=== PATIENT | female | born 1985 | race Caucasian/White ===

== ENCOUNTER 2017-06-30 21:44 | Emergency (ER) | payer OTHER | END 2017-06-30 23:20 | disposition home or self-care (01) | LOC: D.ER 21:44 | DX: J02.0 Streptococcal pharyngitis (principal) ==

== ENCOUNTER 2018-06-28 19:11 | Emergency (ER) | payer OTHER ==
[~2018-06-28] VITALS: Ht 162.6 cm; Wt 100.0 kg
[2018-06-28 19:40] VITALS: Ht 162.6 cm; Wt 100.0 kg
[2018-06-28] MEDS ORDERED: PROZAC10 MG PO (19:41)
[2018-06-28 20:59] LABS: BASOPHILS 0.1 % (0-2); EOSINOPHILS 0.7 % (0-7); HEMOGLOBIN 14.6 g/dL (12-16); IMMATURE GRANULOCYTES 0.1 % (0-5); LYMPHOCYTES 15.5 % (15-50); MCHC 34.8 g/dL (31.0-37.0); MCV 89.2 fL (80.0-100.0); MEAN PLATELET VOLUME 9.7 fL (7.4-10.4); MONOCYTES 7.2 % (2-11); NEUTROPHILS 76.4 % (40-80); PLATELET COUNT 242 10x3/uL (130-400); RBC 4.71 10x6/uL (4.00-5.40); RDW 12.1 % (11.5-14.5)
[2018-06-28 21:15] LABS: ALBUMIN 3.5 g/dL (3.4-5.0); ALKALINE PHOSPHATASE 87 U/L (46-116); ALT (SGPT) 30 U/L (10-68); BILIRUBIN - TOTAL 0.18 mg/dL (0.2-1.3); CALC OSMOLALITY 280 mosm/kg (275-300); CALCIUM 8.6 mg/dL (8.5-10.1); CARBON DIOXIDE 26.1 mmol/L (21.0-32.0); CHLORIDE - SERUM 104 mmol/L (98-107); CREATININE - SERUM 0.8 mg/dL (0.6-1.3); GLUCOSE 102 mg/dL (74-106); POTASSIUM - SERUM 3.8 mmol/L (3.5-5.1); PROTEIN - SERUM 7.7 g/dL (6.4-8.2); SODIUM 141 mmol/L (136-145); UREA NITROGEN 13 mg/dL (7-18); eGFR NON AFRICAN AMERICAN 87 mL/min (90-120)
[2018-06-28 21:24] LABS: AMYLASE - SERUM 45 U/L (25-115); LIPASE 84 U/L (73-393); TROPONIN-I < 0.017 ng/mL (0.000-0.060)
[2018-06-28 21:32] LABS: COLOR YELLOW (YELLOW); HCG URINE NEGATIVE (NEGATIVE)
[2018-06-28 21:33] LABS: APPEARANCE CLEAR (CLEAR); BILIRUBIN NEGATIVE (NEGATIVE); EPITHELIAL CELLS 0-5 /hpf (0-5); GLUCOSE NEGATIVE (NEGATIVE); KETONE NEGATIVE (NEGATIVE); NITRITE NEGATIVE (NEGATIVE); PROTEIN NEGATIVE (NEGATIVE); UROBILINOGEN NORMAL (NORMAL); WHITE CELLS - URINE NSEEN /hpf (0-5)
[2018-06-29] MEDS ORDERED: TORADOL10 MG PO (00:29)
[2018-06-29] MEDS ORDERED: ZOFRAN8 MG PO (00:29)
[2018-06-29 02:29] VITALS: BP 120/65
== END 2018-06-29 02:30 | disposition home or self-care (01) ==
LOC: D.ER 19:11
PROVIDERS: Family Medicine
DX: R10.11 Right upper quadrant pain (principal); R11.2 Nausea with vomiting, unspecified